=== PATIENT | male | born 1995 | race Caucasian/White ===

== ENCOUNTER 2017-08-16 06:57 | Day surgery (SDC) | payer OTHER ==
[~2017-08-16] VITALS: Ht 185.6 cm; Wt 75.0 kg
[~2017-08-16 06:57] MED LIST: CEPHALEXIN500 M1 PO
[2017-08-16 07:43] VITALS: BP 94/58; PULSE 48; TEMP 98.2
== END 2017-08-16 10:59 | disposition home or self-care (01) ==
LOC: COL.CAR 06:57
DX: R55 Syncope and collapse (principal); I45.10 Unspecified right bundle-branch block; R00.0 Tachycardia, unspecified
CPT/HCPCS: J0690